=== PATIENT | male | born 1980 | race Caucasian/White ===

== ENCOUNTER 2016-10-31 09:53 | Inpatient (IN) | payer OTHER ==
[2016-10-31 10:21] VITALS: BMI 22.0
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
[2016-10-31] MEDS ORDERED: MAGNESIUM CITRATE 300 ML BOTTLE PO PRN (12:04)
[2016-10-31] MEDS ORDERED: guaiFENesin/D-METHORPHAN HB 10 ML UNIT-DOSE CUPS PO PRN (12:04)
[2016-10-31] MEDS ORDERED: MENTHOL/PHENOL 1 EACH UD MM PRN (12:04)
[2016-10-31] MEDS ORDERED: diphenhydrAMINE HCL 50 MG CAPSULE PO PRN (12:04)
[2016-10-31] MEDS ORDERED: MAGNESIUM HYDROX 2400MG/30ML ORAL SUSPENSION 30 ML CUP PO PRN (12:04)
[2016-10-31] MEDS ORDERED: chlordiazePOXIDE HCL 25 MG CAPSULE PO PRN (12:04)
[2016-10-31] MEDS ORDERED: ACETAMINOPHEN 325 MG TABLET (FP) PO PRN (12:04)
[2016-10-31] MEDS ORDERED: MAG HYDROX/AL HYDROX/SIMETH 30 ML UNIT-DOSE CUP PO PRN (12:04)
[2016-10-31] MEDS ORDERED: IBUPROFEN 400 MG TABLET (FP) PO PRN (12:04)
[2016-10-31] MEDS ORDERED: P-EPHED 60MG/TRIPROLIDI 2.5MG TABLET PO PRN (12:04)
[2016-10-31] MEDS ORDERED: LOPERAMIDE HCL 2 MG CAPSULE PO PRN (12:04)
[2016-10-31] MEDS ORDERED: hydrOXYzine PAMOATE 50 MG CAPSULE (FP) PO PRN (12:04)
[2016-10-31] MEDS ORDERED: chlordiazePOXIDE HCL 25 MG CAPSULE PO ONE (13:56)
[2016-10-31] MEDS ORDERED: METHADONE HCL 10 MG TABLET (FOR DETOX USE ONLY) PO ONE ×2 (13:57→23:00)
--- NOTE | 2016-10-31 15:09 | CONSULT ---
[facility] Psychiatric Consult - Data Date of interview: 10/31/16 Admission source: [facility] Identifying data: Readmission to [facility] for this 36 y/o male seeking detox treatment on for alcohol,heroin,cocaine and marijuana dependence.Patient is single without children,domiciled,unemployed and supported on his [employer] pension benefits (served from 1996 to 2004.Never in combat operations). Substance Abuse History: Discussed in detail in this interview.Patient remains consistent with the information contained in this section of the [facility] report depicting his substance abuse profile : Smoking Cessation. Smoking history: Current every day smoker. Have you smoked in the past 12 months: Yes. Aproximately how many cigarettes per day: 20. Cigars Per Day: 0. Hx Chewing Tobacco Use: No. Initiated information on smoking cessation: Yes. 'Breaking Loose' booklet given: 10/31/16. - Substance & Tx. History. Hx Alcohol Use: Yes. Hx Substance Use: Yes. Substance Use Type: Alcohol, Heroin. Hx Substance Use Treatment: Yes ([facility] 2016). Patient reports to blog writer that he uses marijuana on a daily basis (since age 13),cocaine (smoking)/heroin via inhalation daily,alcohol (vodka and beer on a daily basis).Abuse of all these substances is reported to having started at age 15-16.Mr Nichols smokes one pack of cigarettes daily.Last used drugs/alcohol just prior to this [facility] visit. Medical History: Remarkable for hypertension and arthritis. Psychiatric History: Diagnosed with Bipolar Disorder (approximately 15 years ago ).History of multiple psychiatric hospitalizations.Mr Nichols reports that all his admissions were managed in [place] hospital settings.OPD care is currently rendered at the [facility] facility in the [place].Currently prescribed Maintena abilify 400 mg IM monthly + ambien 10 mg/hs (used to be on valproate 1000 mg po HS,haldol 5 mg po bid, seroquel 200 mg daily + 600 mg hs and ambien 10 mg po hs as per previous records).Patients endorses adherence to OPD care and he denies history of suicide attempts. Physical/Sexual Abuse/Trauma History: Patient denies. Additional Comment: Urine Drug Screen Results: THC-Marijuana, GT-Cocaine, OPI- Opiates.Noted. Mental Status Exam - Mental Status Exam Alert and Oriented to: Time, Place, Person Cognitive Function: Good Patient Appearance: Well Groomed Mood: Nervous, Withdrawn Affect: Constricted Patient Behavior: Fatigued, Cooperative Speech Pattern: Clear Voice Loudness: Normal Thought Process: Goal Oriented Thought Disorder: Not Present Hallucinations: Denies Suicidal Ideation: Denies Homicidal Ideation: Denies Insight/Judgement: Poor Sleep: Poorly, Difficulty falling asleep Appetite: Fair Muscle strength/Tone: Normal Gait/Station: Normal Psychiatric Findings - Problem List ([place] 1, 2,3) (1) Opioid dependence with withdrawal Current Visit: Yes Status: Chronic (2) Alcohol dependence with uncomplicated withdrawal Current Visit: Yes Status: Chronic (3) Cannabis dependence Current Visit: Yes Status: Chronic (4) Cocaine dependence Current Visit: Yes Status: Chronic Qualifiers: Substance use status: uncomplicated Qualified Code(s): F14.20 - Cocaine dependence, uncomplicated (5) Nicotine dependence Current Visit: Yes Status: Chronic Qualifiers: Nicotine product type: cigarettes Substance use status: uncomplicated Qualified Code(s): F17.210 - Nicotine dependence, cigarettes, uncomplicated (6) ADHD (attention deficit hyperactivity disorder) Current Visit: No Status: Chronic Comment: Self-report. (7) Bipolar disorder Current Visit: Yes Status: Chronic Comment: Self-report. (8) Insomnia Current Visit: Yes Status: Acute - Initial Treatment Plan Initial Treatment Plan: Psychoeducation initiated in this session.Detoxification in progress.Information about date of last injection of Maintena : unavailable at time of this interview.Ambien 10 mg po hs is ordered.Patient made aware of potential for parasomnias.Mr Nichols is agreable with this careplan.Observation.Recent pharmacy claims revisited : not helpful.Will contact [facility] for information (once the patient submits his consent in writing).
[2016-10-31] MEDS ORDERED: ZOLPIDEM TARTRATE 10 MG TABLET (PARK CARE ONLY) PO PRN (15:52)
[2016-10-31 17:06] LABS: URINE APPEARANCE CLEAR; URINE BILIRUBIN NEGATIVE (NEGATIVE); URINE BLOOD NEGATIVE (NEGATIVE); URINE COLOR YELLOW; URINE GLUCOSE (UA) NEGATIVE (NEGATIVE); URINE KETONE NEGATIVE (NEGATIVE); URINE LEUK ESTERASE NEGATIVE (NEGATIVE); URINE NITRITE NEGATIVE (NEGATIVE); URINE PROTEIN NEGATIVE (NEGATIVE); URINE UROBILINOGEN 4.0 E.U/dl mg/dL (0.2-1.0)
[2016-10-31] MEDS: chlordiazePOXIDE HCL 25 MG CAPSULE PO SCH ×2 (17:23→22:58)
--- NOTE | 2016-10-31 17:47 | EKG ---
Test Reason : Blood Pressure : / mmHG Vent. Rate : 091 BPM Atrial Rate : 091 BPM P-R Int : 142 ms QRS Dur : 084 ms QT Int : 388 ms P-R-T Axes : 051 080 057 degrees QTc Int : 477 ms NORMAL SINUS RHYTHM NORMAL ECG NO PREVIOUS ECGS AVAILABLE Confirmed by ANJEL ALMAGUER MD ([id number]) on 10/31/2016 5:46:47 PM Referred By: Rogerio Quinones Confirmed By:ANJEL ALMAGUER MD
[2016-10-31] MEDS ORDERED: THIAMINE HCL 100 MG TABLET (FP) PO SCH (22:00)
[2016-11-01] MEDS: chlordiazePOXIDE HCL 25 MG CAPSULE PO SCH ×2 (06:20→11:19)
[2016-11-01] MEDS ORDERED: METHADONE HCL 10 MG TABLET (FOR DETOX USE ONLY) PO SCH (10:00)
[2016-11-01] MEDS ORDERED: PRENATAL VITAMINS W/ FOLIC ACID TABLET (FP) PO SCH (10:00)
[2016-11-01] MEDS ORDERED: NICOTINE 21 MG/24 HOURS TOPICAL PATCH TD SCH (10:00)
[2016-11-01 10:08] VITALS: BP 113/64; PULSE 85; TEMP 96.9
[2016-11-01 10:25] LABS: MCH 32.2 pg (25.7-33.7); MCHC 34.8 g/dl (32.0-35.9); MEAN CELL VOLUME 92.3 fl (80-96); MEAN PLT VOLUME 8.7 fl (7.5-11.1); PLATELET COUNT 312 K/MM3 (134-434); RDW 13.7 % (11.9-15.9); WHITE BLOOD COUNT 7.5 K/mm3 (4.0-10.0)
--- NOTE | 2016-11-01 11:17 | PN ---
[facility] CIWA - CIWA Score Nausea/Vomitin-No Nausea/No Vomiting Muscle Tremors: 4-Moderate,w/Arms Extend Anxiety: 4-Mod. Anxious/Guarded Agitation: 4-Moderately Restless Paroxysmal Sweats: 1-Minimal Palms Moist Orientation: 0-Oriented Tacttile Disturbances: 3-Moderate Itch/Numb/Burn Auditory Disturbances: 0-None Visual Disturbances: 0-None Headache: 0-None Present CIWA-Ar Total Score: 16 S COWS - Scale Resting Pulse: 1= [place] 81-100 Sweatin= Chills/Flushing Restless Observation: 3= Extraneous Movement Pupil Size: 2= Moderately Dilated Bone or Joint Aches: 4=Acute Joint/Muscle Pain Runny Nose/ Eye Tearin= Nasal Congestion GI Upset > 30mins: 1= Stomach Cramp Tremor Observation of Outstretched Hands: 2= Slight Tremor Visible Yawning Observation: 1= 1-2x During Session Anxiety or Irritability: 2=Irritable/Anxious Goose Flesh Skin: 0=Smooth Skin COWS Score: 18 S Progress Note (SOAP) Subjective: ANXIETY,TREMORS,SWEATS,STOMACH CRAMPS,DIARRHEA,INTERMITTENT SLEEP. Objective: 11/01/16 11:18 Vital Signs Temperature 96.9 F L 11/01/16 10:07 Pulse Rate 85 11/01/16 10:07 Respiratory Rate 18 11/01/16 10:07 Blood Pressure 113/64 11/01/16 10:07 O2 Sat by Pulse Oximetry (%) Laboratory Last Values WBC 7.5 K/mm3 (4.0-10.0) 11/01/16 06:00 RBC 4.16 M/mm3 (4.00-5.60) 11/01/16 06:00 Hgb 13.4 GM/dL (11.7-16.9) 11/01/16 06:00 Hct 38.5 % (35.4-49) 11/01/16 06:00 MCV 92.3 fl (80-96) 11/01/16 06:00 MCH 32.2 pg (25.7-33.7) 11/01/16 06:00 MCHC 34.8 g/dl (32.0-35.9) 11/01/16 06:00 RDW 13.7 % (11.9-15.9) 11/01/16 06:00 Plt Count 312 K/MM3 (134-434) D 11/01/16 06:00 MPV 8.7 fl (7.5-11.1) 11/01/16 06:00 Urine Color Yellow 10/31/16 14:00 Urine Appearance Clear 10/31/16 14:00 Urine pH 6.0 (5.0-8.0) 10/31/16 14:00 Ur Specific [place] 1.020 (1.005-1.025) 10/31/16 14:00 Urine Protein Negative (NEGATIVE) 10/31/16 14:00 Urine Glucose (UA) Negative (NEGATIVE) 10/31/16 14:00 Urine Ketones Negative (NEGATIVE) 10/31/16 14:00 Urine Blood Negative (NEGATIVE) 10/31/16 14:00 Urine Nitrite Negative (NEGATIVE) 10/31/16 14:00 Urine Bilirubin Negative (NEGATIVE) 10/31/16 14:00 Urine Urobilinogen 4.0 e.u/dl mg/dL (0.2-1.0) 10/31/16 14:00 Ur Leukocyte Esterase Negative (NEGATIVE) 10/31/16 14:00 OTHER LAB RESULTS PENDING. Assessment: 11/01/16 11:19 WITHDRAWAL SX Plan: CONTINUE DETOX IMODIUM FLEXERIL DIRECTED
[2016-11-01 12:16] LABS: ALBUMIN 3.6 g/dl (3.4-5.0); ALK PHOS 61 U/L (45-117); ANION GAP 11 (8-16); BILIRUBIN,TOTAL 0.5 mg/dL (0.2-1.0); CALCIUM 8.7 mg/dL (8.5-10.1); CO2 27 mmol/L (21-32); CREATININE 0.8 mg/dL (0.7-1.3); GLUCOSE,RANDOM 119 mg/dL (74-106); SGOT/AST 26 U/L (15-37); SGPT/ALT 32 U/L (12-78); TOT PROT 6.6 g/dl (6.4-8.2)
--- NOTE | 2016-11-01 12:58 | DS ---
[facility] Detox Discharge Summary Admission Date: 10/31/16 Discharge Date: 11/01/16 - History Present History: Alcohol Dependence, Cannabis Dependence, Opioid Dependence Additional Comments: PT DECLINED TO CONTINUE DETOX FOR PERSONAL REASONS. ALERT O X 3. NAD. Pertinent Past History: HX ADHD - Physical Exam Results Vital Signs: Vital Signs Temperature 96.9 F L 11/01/16 10:07 Pulse Rate 85 11/01/16 10:07 Respiratory Rate 18 11/01/16 10:07 Blood Pressure 113/64 11/01/16 10:07 O2 Sat by Pulse Oximetry (%) Pertinent Admission Physical Exam Findings: WITHDRAWAL SX Laboratory Last Values WBC 7.5 K/mm3 (4.0-10.0) 11/01/16 06:00 RBC 4.16 M/mm3 (4.00-5.60) 11/01/16 06:00 Hgb 13.4 GM/dL (11.7-16.9) 11/01/16 06:00 Hct 38.5 % (35.4-49) 11/01/16 06:00 MCV 92.3 fl (80-96) 11/01/16 06:00 MCH 32.2 pg (25.7-33.7) 11/01/16 06:00 MCHC 34.8 g/dl (32.0-35.9) 11/01/16 06:00 RDW 13.7 % (11.9-15.9) 11/01/16 06:00 Plt Count 312 K/MM3 (134-434) D 11/01/16 06:00 MPV 8.7 fl (7.5-11.1) 11/01/16 06:00 Sodium 145 mmol/L (136-145) 11/01/16 06:00 Potassium 3.8 mmol/L (3.5-5.1) 11/01/16 06:00 Chloride 107 mmol/L (98-107) 11/01/16 06:00 Carbon Dioxide 27 mmol/L (21-32) 11/01/16 06:00 Anion Gap 11 (8-16) 11/01/16 06:00 BUN 21 mg/dL (7-18) H 11/01/16 06:00 Creatinine 0.8 mg/dL (0.7-1.3) 11/01/16 06:00 Creat Clearance w eGFR > 60 (>60) 11/01/16 06:00 Random Glucose 119 mg/dL (74-106) H D 11/01/16 06:00 Calcium 8.7 mg/dL (8.5-10.1) 11/01/16 06:00 Total Bilirubin 0.5 mg/dL (0.2-1.0) D 11/01/16 06:00 AST 26 U/L (15-37) D 11/01/16 06:00 ALT 32 U/L (12-78) D 11/01/16 06:00 Alkaline Phosphatase 61 U/L (45-117) 11/01/16 06:00 Total Protein 6.6 g/dl (6.4-8.2) 11/01/16 06:00 Albumin 3.6 g/dl (3.4-5.0) 11/01/16 06:00 Urine Color Yellow 10/31/16 14:00 Urine Appearance Clear 10/31/16 14:00 Urine pH 6.0 (5.0-8.0) 10/31/16 14:00 Ur Specific [place] 1.020 (1.005-1.025) 10/31/16 14:00 Urine Protein Negative (NEGATIVE) 10/31/16 14:00 Urine Glucose (UA) Negative (NEGATIVE) 10/31/16 14:00 Urine Ketones Negative (NEGATIVE) 10/31/16 14:00 Urine Blood Negative (NEGATIVE) 10/31/16 14:00 Urine Nitrite Negative (NEGATIVE) 10/31/16 14:00 Urine Bilirubin Negative (NEGATIVE) 10/31/16 14:00 Urine Urobilinogen 4.0 e.u/dl mg/dL (0.2-1.0) 10/31/16 14:00 Ur Leukocyte Esterase Negative (NEGATIVE) 10/31/16 14:00 RPR Titer Nonreactive (NONREACTIVE) 11/01/16 06:00 - Treatment Hospital Course: Discharged Condition Good - Medication Discharge Medications: Ambulatory Orders Zolpidem Tartrate [Ambien] 10 mg PO HS 11/06/13 Aripiprazole [Abilify Maintena] 400 mg IM MONTHLY 10/31/16 - Diagnosis (1) Alcohol dependence with uncomplicated withdrawal Status: Acute (2) Cannabis dependence Status: Acute (3) Cocaine dependence Status: Chronic Qualifiers: Substance use status: uncomplicated Qualified Code(s): F14.20 - Cocaine dependence, uncomplicated (4) Nicotine dependence Status: Chronic Qualifiers: Nicotine product type: cigarettes Substance use status: in withdrawal Qualified Code(s): F17.213 - Nicotine dependence, cigarettes, with withdrawal (5) Opioid dependence with withdrawal Status: Acute - AMA Did Patient Leave Against Medical Advice: Yes (AMA)
[2016-11-01] MEDS ORDERED: chlordiazePOXIDE HCL 25 MG CAPSULE PO SCH (17:00)
[2016-11-02] MEDS ORDERED: METHADONE HCL 5 MG TABLET (FOR DETOX USE ONLY) PO SCH (10:00)
[2016-11-02] MEDS ORDERED: chlordiazePOXIDE 5 MG CAPSULE PO SCH (17:00)
[2016-11-03] MEDS ORDERED: chlordiazePOXIDE HCL 10 MG CAPSULE PO SCH (17:00)
[2016-11-04] MEDS ORDERED: METHADONE HCL 10 MG TABLET (FOR DETOX USE ONLY) PO SCH (10:00)
[2016-11-05] MEDS ORDERED: METHADONE HCL 5 MG TABLET (FOR DETOX USE ONLY) PO SCH (06:00)
== END 2016-11-01 12:50 | disposition left against medical advice (07) | DRG 770 ==
LOC: YASAS 09:53 → Y3N 13:48
PROVIDERS: ADMIT Internal Medicine; ATTEND Internal Medicine
PROC: HZ2ZZZZ Detoxification Services for Substance Abuse Treatment (ICD-10-PCS; principal; 2016-11-01)
DX: F11.23 Opioid dependence with withdrawal (principal); F10.230 Alcohol dependence with withdrawal, uncomplicated; F14.20 Cocaine dependence, uncomplicated; F12.20 Cannabis dependence, uncomplicated; F17.213 Nicotine dependence, cigarettes, with withdrawal; F90.9 Attention-deficit hyperactivity disorder, unspecified type; F31.9 Bipolar disorder, unspecified; G47.00 Insomnia, unspecified
CPT/HCPCS: 36415; 71020-TC; 80053; 81003; 85027; 86593; 93005; 93010

== ENCOUNTER 2024-03-23 16:51 | Inpatient (IN) | payer OTHER ==
[2024-03-23 17:24] VITALS: BMI 21.9
[2024-03-23] MEDS ORDERED: cloNIDine HCL 0.1 MG TABLET PO PRN (18:09)
[2024-03-23] MEDS ORDERED: methaDONE HCL 10 MG TABLET (FOR DETOX USE ONLY) PO PRN (18:09)
[2024-03-23] MEDS ORDERED: IBUPROFEN 400 MG TABLET (FP) PO PRN (18:10)
[2024-03-23] MEDS ORDERED: BISMUTH SUBSALICYLATE 524 MG/30 ML PO PRN (18:10)
[2024-03-23] MEDS ORDERED: MAG HYDROX/AL HYDROX/SIMETH 30 ML UNIT-DOSE CUP PO PRN (18:10)
[2024-03-23] MEDS ORDERED: DICYCLOMINE HCL 10 MG CAPSULE PO PRN (18:10)
[2024-03-23] MEDS ORDERED: guaiFENesin 600 MG TABLET.ER (FP) PO PRN (18:10)
[2024-03-23] MEDS ORDERED: ACETAMINOPHEN 325 MG TABLET (FP) PO PRN (18:10)
[2024-03-23] MEDS ORDERED: ONDANSETRON *ODT* 4 MG TABLET SL PRN (18:10)
[2024-03-23] MEDS ORDERED: NALOXONE (NARCAN) HCL 4 MG/0.1 ML SPRAY NS PRN (18:10)
[2024-03-23] MEDS ORDERED: LOPERAMIDE HCL 2 MG CAPSULE PO PRN (18:10)
[2024-03-23] MEDS ORDERED: MAGNESIUM HYDROX 2400MG/30ML ORAL SUSPENSION 30 ML CUP PO PRN (18:10)
[2024-03-23] MEDS ORDERED: NICOTINE POLACRILEX 2 MG LOZENGE BC PRN (18:10)
[2024-03-23] MEDS ORDERED: NICOTINE POLACRILEX 2 MG GUM BUC PRN (18:10)
[2024-03-23] MEDS ORDERED: METHOCARBAMOL 500 MG TABLET PO PRN (18:10)
[2024-03-23] MEDS ORDERED: IBUPROFEN 600 MG TABLET (FP) PO PRN (18:10)
[2024-03-23] MEDS ORDERED: P-EPHED 60MG/TRIPROLIDI 2.5MG TABLET PO PRN (18:10)
[2024-03-23] MEDS ORDERED: BENZONATATE 200 MG CAPSULE PO PRN (18:10)
[2024-03-23] MEDS ORDERED: POLYETHYLENE GLYCOL (HEALTHYLAX) 3350 17 GM PACKET PO PRN (18:10)
[2024-03-23] MEDS ORDERED: BENZOCAINE/MENTHOL (CHLORASEPTIC ) LOZENGE MM PRN (18:10)
[2024-03-23] MEDS ORDERED: diazePAM 5 MG TABLET PO PRN (19:33)
[2024-03-23] MEDS: methaDONE HCL 10 MG TABLET (FOR DETOX USE ONLY) PO ONE (20:39)
[2024-03-23] MEDS ORDERED: methaDONE HCL 10 MG TABLET (FOR DETOX USE ONLY) ONE (21:45)
[2024-03-23] MEDS ORDERED: MELATONIN 5 MG TABLETS ONE (21:45)
[2024-03-23] MEDS: MELATONIN 5 MG TABLETS PO SCH (21:54)
[2024-03-23] MEDS: THIAMINE 100 MG TABLET PO SCH (21:54)
[2024-03-24] MEDS: methaDONE HCL 10 MG TABLET (FOR DETOX USE ONLY) PO ONE (10:51)
[2024-03-24] MEDS: PRENATAL VITAMINS W/ FOLIC ACID TABLET (FP) PO SCH (10:51)
[2024-03-25 11:20] VITALS: BP 108/69; PULSE 81; RESP 18; TEMP 98.6
[2024-03-25] MEDS: NALOXONE (NYS OPIOID OVERDOSE PROGRAM) 4 MG/0.1 ML SPRAY NS SCH (12:15)
[2024-03-26] MEDS ORDERED: methaDONE HCL 10 MG TABLET (FOR DETOX USE ONLY) PO ONE (10:00)
[2024-03-28] MEDS ORDERED: methaDONE HCL 10 MG TABLET (FOR DETOX USE ONLY) PO ONE (10:00)
== END 2024-03-25 12:20 | disposition left against medical advice (07) | DRG 770 ==
LOC: YASAS 16:51 → Y3N 03-24 01:33
PROVIDERS: ADMIT Allergy & Immunology; ATTEND Surgery
PROC: HZ2ZZZZ Detoxification Services for Substance Abuse Treatment (ICD-10-PCS; principal; 2024-03-24)
DX: F11.23 Opioid dependence with withdrawal (principal); F10.20 Alcohol dependence, uncomplicated; F14.20 Cocaine dependence, uncomplicated; F17.210 Nicotine dependence, cigarettes, uncomplicated; F32.A Depression, unspecified; Z59.02 Unsheltered homelessness; Z91.85 Personal history of military service; Z88.7 Allergy status to serum and vaccine
CPT/HCPCS: 93005; 93010